=== PATIENT | male | born 1990 | race Caucasian/White ===

== ENCOUNTER 2019-08-10 15:18 | Emergency (ER) | payer BC, OTHER ==
[~2019-08-10] VITALS: Ht 177.8 cm; Wt 78.5 kg
[2019-08-10 15:51] VITALS: BP 123/85
== END 2019-08-10 20:14 | disposition left against medical advice (07) ==
LOC: ER 15:18
DX: R11.2 Nausea with vomiting, unspecified (principal); R19.7 Diarrhea, unspecified; Z53.21 Procedure and treatment not carried out due to patient leaving prior to being seen by health care provider